=== PATIENT | male | born 1955 | race Caucasian/White ===

== ENCOUNTER → 2016-12-26 | Outpatient (CLI) | payer BC ==
[2016-12-26 20:42] LABS: Basophils # (A) 0.1 k/uL (0-0.2); Basophils % (A) 1 %; CH 33.7; CHCM 32.9; Eosinophils # (A) 0.1 k/uL (0-0.7); Eosinophils % (A) 1 %; HCT 52.2 % (39.0-53.0); Luc # (Auto) 0.29; Luc % (Auto) 4; Lymphocytes # (A) 1.8 k/uL (1.0-4.8); Lymphocytes % (A) 27 %; MCH 33.5 pg (25.0-35.0); MCHC 32.5 g/dL (31.0-37.0); MCV 102.9 fL (80.0-100.0); Macrocytosis Slight; Mean Platelet Volume 8.6; Monocytes # (A) 0.6 k/uL (0-1.0); Monocytes % (A) 8 %; Neutrophils % (A) 59 %; RBC 5.07 m/uL (4.30-5.90); RDW 13.4 % (11.5-15.5); WBC 6.8 k/uL (3.8-10.6); WBC (Perox) 6.98
[2016-12-26 21:04] LABS: ALT 34 U/L (21-72); AST 25 U/L (17-59); Alkaline Phosphatase 90 U/L (38-126); Anion Gap 9 mmol/L; Blood Urea Nitrogen 23 mg/dL (9-20); Calcium 9.2 mg/dL (8.4-10.2); Carbon Dioxide 29 mmol/L (22-30); Chloride 103 mmol/L (98-107); Cholesterol 172 mg/dL (<200); Glucose 128 mg/dL (74-99); HDL Cholesterol 39 mg/dL (40-60); Non-African American GFR(MDRD) >60 (>60 ml/min/1.73 sqM); Potassium 5.5 mmol/L (3.5-5.1); Sodium 141 mmol/L (137-145); Total Bilirubin 0.7 mg/dL (0.2-1.3); Total Protein 7.3 g/dL (6.3-8.2); Triglycerides 245 mg/dL (<150)
[2016-12-26 22:37] LABS: Hemoglobin A1C 8.4 % (4.2-6.1)
== END | disposition home or self-care (01) ==
LOC: MMGSC 11:12
PROVIDERS: ATTEND Family Medicine
DX: E11.9 Type 2 diabetes mellitus without complications (principal); I10 Essential (primary) hypertension; E78.5 Hyperlipidemia, unspecified
CPT/HCPCS: 36415; 80053; 80061; 82043; 83036; 84439; 84443; 85025

== ENCOUNTER → 2018-05-04 | Outpatient (CLI) | payer OTHER | END | disposition home or self-care (01) | LOC: LABWHC1 14:44 | PROVIDERS: ATTEND Family Medicine | DX: E87.5 Hyperkalemia (principal) | CPT/HCPCS: 36415; 84132 ==

== ENCOUNTER → 2018-08-07 | Outpatient (CLI) | payer OTHER ==
[2018-08-07 10:38] LABS: Albumin 4.1 g/dL (3.5-5.0); Calcium 9.4 mg/dL (8.4-10.2); Potassium 5.3 mmol/L (3.5-5.1); Total Bilirubin 0.5 mg/dL (0.2-1.3); Total Protein 7.8 g/dL (6.3-8.2)
[2018-08-07 19:38] LABS: Hemoglobin A1C 8.6 % (4.0-6.0)
== END ==
LOC: LABWHC1 09:07
PROVIDERS: ATTEND Family Medicine
DX: E11.9 Type 2 diabetes mellitus without complications (principal); E78.5 Hyperlipidemia, unspecified; I10 Essential (primary) hypertension
CPT/HCPCS: 36415; 80053; 80061; 82043; 82570; 83036

== ENCOUNTER → 2020-01-13 | Outpatient (CLI) | payer BC ==
[2020-01-13 14:34] LABS: African American GFR (CKD) >90 (>60 ml/min/1.73 sqM); Blood Urea Nitrogen 28 mg/dL (9-20); Non-African American GFR(CKD) 81 (>60 ml/min/1.73 sqM)
--- NOTE | 2020-01-13 15:35 | CT ---
"EXAMINATION TYPE: CT soft tissue neck w con DATE OF EXAM: 01/13/2020 HISTORY: right sided neck swelling COMPARISON: NONE CT DLP: 600.4 mGycm. Automated Exposure Control for Dose Reduction was Utilized. TECHNIQUE: CT scan of the neck is performed with IV Contrast, patient injected with 100 mL of Isovue 300, axial images are obtained, coronal and sagittal reformatted images are reviewed. FINDINGS: Airway: Mild emphysematous change in visualized lung apices. There is abnormal heterogeneous round ma ss at level of piriform sinuses just below the epiglottis sagittal image 38 centrally measuring 1.4 x 1.4 x 2.1 cm axial image 46 and coronal image 29. There is local mass effect with narrowing of the h ypopharyngeal airway greatest appreciated axial image 46. The left side of the airway remains patent. Parotid/submandibular glands: No gross abnormality seen. Carotid/Vascular Structures: Fairly severe calcified plaque right carotid bulb extending into proxima l internal carotid artery. Follow-up advised. More moderate plaquing left carotid bulb without signif icant stenosis. Dominant right vertebral artery. Osseous Structures: Moderate disc space narrowing C6-C7 level. [place] [employer] fracture posterior T 1 spinous process. Other: Corresponding to patient's symptoms there is low dense irregular lesion in the right neck kathrine uring 3.3 x 3.1 cm axial image 45 by 4.1 cm protocol dimension coronal image 30 with thickened irregu lar wall and septation. There is mass effect on the internal jugular vein and right internal carotid artery pushed posteriorly. Lesion appears deep to the right sternocleidomastoid mastoid muscle with i ndistinct fat planes from such structures. This is at level of the vocal cords and superior aspect of the thyroid glands centered roughly C5 level. IMPRESSION: 1. There is 4.1 cm irregular thick-walled low dense lesion right neck. Suspect central hypoglottic ma ss or neoplasm with adjacent necrotic right neck adenopathy. Advise further investigation with direct visualization for tissue confirmation. Local mass effect with airway narrowing is noted. A Yellow level critical message alert has been initiated for Kyler Kim MD via the [employer] 36 0 | Critical Results System on 01/13/2020 3:32 PM. This message alert has been sent to Kyler Kim MD via the preferences provided by the clinician for the receipt of Radiology Critical Findings. [facility] ID [id number]."
== END | disposition home or self-care (01) ==
LOC: RADCTMAIN 13:45
PROVIDERS: ATTEND Otolaryngology
DX: L98.8 Other specified disorders of the skin and subcutaneous tissue (principal); R22.1 Localized swelling, mass and lump, neck
CPT/HCPCS: 82565; 84520; 70491; 36415; Q9967

== ENCOUNTER → 2020-01-16 | Outpatient (CLI) | payer BC ==
[~2020-01-16] MED LIST: REGADENOSON 0.4 MG/5 ML SYRINGE IV ONE
--- NOTE | 2020-01-16 08:05 | XR ---
EXAMINATION TYPE: XR chest 2V DATE OF EXAM: 01/16/2020 COMPARISON: 07/13/2009 HISTORY: 64-year-old male preoperative evaluation TECHNIQUE: Frontal and lateral views FINDINGS: Heart normal size. Aorta and pulmonary vasculature within normal limits. Focal patchy left basilar op acity partially silhouetting the left hemidiaphragm on the frontal view. Mild hyperinflation. No pleu ral effusion. IMPRESSION: 1. Mild hyperinflation may reflect underlying emphysema or depth of inspiration. Clinically correlate . 2. Frontal view shows some focal patchy opacity at the left base. This could represent atelectasis or an early infiltrate
--- NOTE | 2020-01-16 10:53 | NM ---
"EXAMINATION TYPE: NM stress lexiscan cardiolite DATE OF EXAM: 01/16/2020 COMPARISON: NONE HISTORY: Preoperative examination. Chest pain. TECHNIQUE: After the intravenous administration of 10.9 mCi Tc 99m Sestamibi - Cardiolite resting SP ECT images acquired 50 minutes post injection. The patient received 0.4mg Lexiscan, 27.3 mCi Tc 99m Sestamibi - Stress images obtained [address] injection FINDINGS: Review of stress and rest SPECT images demonstrates a large fixed defect of the inferior lateral wall with surrounding medardo-infarct ischemia also involving the inferior lateral wall remaining segments. This is demonstrated as a stress defect greater than rest defect on scintigraphic images. Gated anal ysis shows abnormal wall motion with dyskinesis of the inferolateral wall. There is an estimated left ventricular ejection fraction of 42 %. TID is calculated at 1.15, within normal limits. 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 Abnormal estimated left ventricular ejection fraction of 42%. A Yellow level critical message alert has been initiated for Kyler Kim MD via the [employer] 36 0 | Critical Results System on 01/16/2020 10:49 AM. This message alert has been sent to Kyler Kim MD via the preferences provided by the clinician for the receipt of Radiology Critical Findings. [facility] ID [id number]."
--- NOTE | 2020-01-16 11:52 | EST ---
EXERCISE STRESS DATE OF SERVICE: 01/16/2020 AGE: 64 SEX: Male HT: 6'4" WT: 262 pounds PROTOCOL: Lexiscan Cardiolite STAGE: DURATION OF EXERCISE: HEART RATE REST: 90 BLOOD PRESSURE REST: 140/85 MAXIMUM HEART RATE ACHIEVED: 102 MAXIMUM BLOOD PRESSURE: 150/69 85% MPHR: 100% MPHR: METS: INDICATIONS: Chest pain. CLINICAL INFORMATION: STRESS DATA: Heart rate 90, pressure is 140/85 mmHg. Baseline EKG showed sinus rhythm. A 0.4 mg of Lexiscan given over 15 seconds per protocol. Max heart rate was 102 beats per minute. Maximum pressure was 150/69 mmHg. Clinically the patient did not have no symptoms and the EKG did not show any significant ST or T-wave abnormalities concerning for ischemia. CONCLUSION: 1. Nondiagnostic electrocardiogram stress testing in response to Lexiscan. 2. Please follow up on the Cardiolite portion on separate report from Radiology Department. MMODL / IJN: [id number] /
== END | disposition home or self-care (01) ==
LOC: RADNMMAIN 07:49
PROVIDERS: ATTEND Family Medicine
DX: Z01.810 Encounter for preprocedural cardiovascular examination (principal); I25.9 Chronic ischemic heart disease, unspecified; R91.8 Other nonspecific abnormal finding of lung field; E11.65 Type 2 diabetes mellitus with hyperglycemia; E11.22 Type 2 diabetes mellitus with diabetic chronic kidney disease; I12.9 Hypertensive chronic kidney disease with stage 1 through stage 4 chronic kidney disease, or unspecified chronic kidney disease; N18.9 Chronic kidney disease, unspecified
CPT/HCPCS: 93017; 71046; 78452; A9500; J2785

== ENCOUNTER → 2020-01-27 | Outpatient (CLI) | payer BC ==
--- NOTE | 2020-01-30 08:46 | PE ---
EXAMINATION TYPE: PET CT fusion skull to thigh DATE OF EXAM: 01/27/2020 COMPARISON: CT soft tissue neck 01/13/2020 Prior PET/CT: None HISTORY: Squamous cell carcinoma skin of scalp TECHNIQUE: Following the intravenous administration of 13.22 mCi of F-18 FDG, whole body images are performed from the skull base to the midthigh. Images are reviewed on the computer in the coronal, a xial, and sagittal planes. Reconstructed rotating images are created on independent workstation and reviewed on the computer. A localization and attenuation correction CT is performed in conjunction with the PET scan. DLP: 696.98 mGycm SCAN: Initial Blood glucose: 172 mg/dL Average Mediastinum SUV: 1.72 Average Liver SUV: 1.91 FINDINGS: NECK: Dedicated images were obtained over the neck. Focal radiotracer accumulation is in the region of the lower epiglottis extending towards the right aryepiglottic fold. SUV value 6.36. There is peripheral enhancement of a right lateral neck mass. Superficial mass has an SUV value of 4. 11, image 70. The peripheral radiotracer within the deep mass has an SUV value of 6.55, image 66. Th katie 2 structures may be contiguous. There may be a small lymph node with increased radiotracer measuring 2.38 SUV value. Image 45. This i s just superior to the right neck mass in the carotid sheath region. THORAX: No abnormal uptake ABDOMEN: No abnormal uptake PELVIS: No abnormal uptake OSSEOUS STRUCTURES: No abnormal uptake LOCALIZATION CT: Mass is extending from the right aryepiglottic fold above the level of the vocal cor ds within the hypopharynx. This measures 2.3 x 2.1 cm. Series 3 image 60. The superficial right lower neck mass measures 4.3 x 2.1 cm. Deeper mass with a hypodense center kathrine ures 3.7 x 5.3 cm. These may be contiguous. COMPARISON: None IMPRESSION: 1. Hyperintense uptake within the hypopharynx mass which may be arising from the right aryepiglottic fold. 2. 2 masses or contiguous mass within the right neck corresponding to palpable region with hyperinten sity suspicious for metastatic disease with central necrosis. 3. Small lymph node with some mild increased uptake suspicious for early metastatic disease just supe rior to the right neck mass in the right carotid sheath lymph node.
== END | disposition home or self-care (01) ==
LOC: RADPETMAIN 12:35
PROVIDERS: ATTEND Otolaryngology
DX: C44.42 Squamous cell carcinoma of skin of scalp and neck (principal); J39.2 Other diseases of pharynx; R22.1 Localized swelling, mass and lump, neck
CPT/HCPCS: 78815; A9552